=== PATIENT | male | born 1955 | race Hispanic/Latino ===

== ENCOUNTER 2017-09-16 10:45 | Emergency (ER) | payer OTHER ==
[2017-09-16] MEDS: KETOROLAC TROMETHAMINE 10 MG TAB PO (12:14)
== END 2017-09-16 14:12 | disposition home or self-care (01) ==
LOC: M ED 10:45
DX: M54.12 Radiculopathy, cervical region (principal); M48.02 Spinal stenosis, cervical region; E11.9 Type 2 diabetes mellitus without complications; I10 Essential (primary) hypertension; E78.5 Hyperlipidemia, unspecified; M19.90 Unspecified osteoarthritis, unspecified site; G47.33 Obstructive sleep apnea (adult) (pediatric); Z79.899 Other long term (current) drug therapy
CPT/HCPCS: 72125